=== PATIENT | female | born 1970 | race Caucasian/White ===

== ENCOUNTER 2017-04-25 09:42 | Emergency (ER) | payer SELFPAY ==
[2017-04-25 09:47] VITALS: BP 124/76; BMI 25.9
[2017-04-25] MEDS ORDERED: TORADOL 60 MG VIAL IM ONE (11:46)
[2017-04-25] MEDS ORDERED: TORADOL 60 MG VIAL ONE (11:47)
--- NOTE | 2017-04-25 12:41 | DR.EXTPAIN ---
HPI - Time seen Time seen: 10:00 - PCP Primary Care Physician: NFD - Complaint/Symptoms Chief Complaint Doctor Comments: Patient fell while at home two days ago while putting on clothing. She presents today with complain of increased pain in left shoulder. Prior x ray was negative. Chief Complaint:: PT. FELL AT HOME 2 DAYS AGO. PT. C/O LEFT SHOULDER BLADE PAIN. PT. WENT TO [facility] WHEN IT HAPPENED AND THEY TOLD HER IT WAS BRUISED AND PLACED HER IN AN ARM SLING. PT. HAS LIMITED RANGE OF MOTION TO LEFT ARM AND SEVERE PAIN. 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 Past Surgical History: Yes Surgical History: Hysterectomy, Other Past Surgical History Comment: FINGER AND RIGHT LEG - Family History History of Family Medical Conditions: No - Social History Does patient currently use any type of tobacco product: No Have you used tobacco products in the last 12 months: No Type of Tobacco Use: None Does any household member use tobacco: No Alcohol Use: None Do you use any recreational Drugs:: No Lives With: Family Lives Where: Home - infectious screening In the last 2 months have you had wt loss of >10#?: NO Have you had fever, night sweats or hemotysis?: No Have you traveled outside the country in the last 6 months?: No Isolation: Standard ROS - Review of Systems Eyes: No Symptoms Reported ENTM: No Symptoms Reported Respiratoy: No Symptoms Reported Cardiovascular: No Symptoms Reported Gastrointestinal/Abdominal: No Symptoms Reported Genitourinary: No Symptoms Reported Neurological: No Symptoms Reported Musculoskeletal: No Symptoms Reported Integumentary: No Symptoms Reported Hematologic/Lymphatic: No Symptoms Reported Endocrine: No Symptoms Reported Psychiatric: No Symptoms Reported All Other Systems: Reviewed and Negative PE - Vital Signs Vitals: Temperature 98.2 F Pulse Rate 79 Respiratory Rate 20 Blood Pressure 124/76 O2 Sat by Pulse Oximetry 95 - General Limitations: No Limitations General Appearance: Alert, Anxious - Head Head Exam: Normal Inspection, Atraumatic - Eyes Eye exam: Normal Appearance, PERRL, EOMI - ENT ENT Exam: Normal Exam - Neck Neck Exam: Normal Inspection, Full ROM - Chest Chest Inspection: Normal Inspection - Respiratory Respiratory Exam: Normal Lung Sounds Bilat Respiratory Exam: Bilateral Clear to Auscultation - Cardiovascular Cardiovascular Exam: Regular Rate, Normal Rhythm - Abdominal Exam Abdominal Exam: Normal Inspection Abdominal Tenderness: Epigastrium - Extremities Extremities Exam: Normal Inspection - Upper Extremities Shoulder Exam: Tenderness over AC Joint Arm Exam: Normal Inspection Elbow Exam: Normal Inspection Forearm Exam: Normal Inspection Hand Exam: Normal Inspection Neuromotor Exam: Normal Exam Neurosensory Exam: Normal Exam Upper Ext. Vascular Exam: Capillary Refill - Lower Extremities Hip/Pelvis Exam: Normal Inspection Upper Leg Exam: Normal Inspection Knee Exam: Normal Inspection Lower Leg Exam: Normal Inspection Ankle Exam: Normal Inspection Foot/Toe Exam: Normal Inspection Neurovascular/Tendon Exam: Normal Capillary Refill Gait Exam: Observed and Normal - Back Back Exam: Normal Inspection - Neurological Neurological Exam: Alert, Oriented X3, CN II-XII Intact - Psychiatric Psychiatric Exam: Normal Affect - Skin Skin Exam: Warm, Dry, Intact Course - Education/Counseling Educated On: Treatment, Diagnosis, Needs for Follow Up ROR - XRAY XRAY Interpreted by: Radiologist (Acute inferior scapular fracture, incompletely visualized) - Diagnosis Discharge Problem: Closed left scapular fracture Qualifiers: Encounter type: initial encounter Scapula location: unspecified part of scapula Qualified Code(s): S42.102A - Fracture of unspecified part of scapula, left shoulder, initial encounter for closed fracture - Discharge Plan Condition: Stable - Follow ups/Referrals Follow ups/Referrals: NFD,None [Primary Care Provider] - 3 days - Instructions
--- NOTE | 2017-04-25 13:12 | CT ---
CT left shoulder without contrast Indication: Fall with shoulder pain and limited range of motion Comparison: None Technique: CT images of the left shoulder were obtained without contrast. Automatic exposure control was utilized. Findings: There is an acute, moderately displaced fracture along the inferior aspect of the scapula, incompletely visualized. The glenohumeral and acromioclavicular joints are normally maintained. No ac raffy cortical disruption or malalignment of the shoulder identified. The muscle bulk about the shoulde r is within normal limits. No overt cuff tear, within CT limitations. No acute upper rib fracture observed. There is a chronic nondisplaced fracture of the anterior left 3 rd rib. The upper left lung is grossly clear. Impression: Acute inferior scapular fracture, incompletely visualized. Reported By:
== END 2017-04-25 13:46 | disposition home or self-care (01) ==
LOC: ER 09:57
DX: S42.102A Fracture of unspecified part of scapula, left shoulder, initial encounter for closed fracture (principal); W19.XXXA Unspecified fall, initial encounter; Y92.009 Unspecified place in unspecified non-institutional (private) residence as the place of occurrence of the external cause
CPT/HCPCS: 73200; 96372; 99282; J1885

== ENCOUNTER → 2017-07-29 | Outpatient (CLI) | payer MEDICAID ==
[~2017-07-29] MED LIST: FENTANYL INJ 100 mcg ONE
--- NOTE | 2017-07-29 13:08 | RAD ---
Examination: Chest x-ray. Clinical History: Preop for right foot surgery. Technique: PA and lateral views of the chest were obtained. Comparison: None available. Findings: The cardiac and mediastinal contours are within normal limits. No pneumothorax or pleural effusion is noted. The lungs appear clear. There is a thoracic scoliosis seen convex to the right. No acute osseous abnormality is noted. Impression: 1. No acute disease. Reported By:
[2017-07-29 13:33] LABS: BASOPHILS # (AUTO) 0.1 X10^3/uL (0.0-0.1); EOSINOPHILS % (AUTO) 0.7 % (0.9-2.9); HEMATOCRIT 39.7 % (36.0-47.0); HEMOGLOBIN 13.5 g/dL (12.0-16.0); LYMPHOCYTES # (AUTO) 1.5 X10^3/uL (1.3-2.9); LYMPHOCYTES % (AUTO) 28.6 % (21.0-51.0); MEAN CORPUSCULAR HEMOGLOBIN 28.3 pg (27.0-34.0); MEAN CORPUSCULAR VOLUME 83.3 fL (80.0-100.0); MEAN PLATELET VOLUME 7.6 fL (7.4-11.0); MONOCYTES # (AUTO) 0.3 x10^3/uL (0.3-0.8); MONOCYTES % (AUTO) 6.3 % (0.0-13.0); NEUTROPHILS # (AUTO) 3.4 x10^3/uL (2.2-4.8); NEUTROPHILS % (AUTO) 63.4 % (42.0-75.0); PLATELET COUNT 325 X10^3/uL (150.0-450.0); RED BLOOD COUNT 4.76 X10^6/uL (3.5-5.4); RED CELL DISTRIBUTION WIDTH 14.2 % (11.6-16.5); WHITE BLOOD COUNT 5.3 X10^3/uL (3.6-10.0)
[2017-07-29 13:35] LABS: BILIRUBIN,URINE 1+ (NEGATIVE); BLOOD/HEMOGLOBIN,URINE 1+ (NEGATIVE); GLUCOSE, URINE NEGATIVE (NEGATIVE); KETONES,URINE 1+ (NEGATIVE); LEUKOCYTE ESTERASE ,URINE 2+ (NEGATIVE); NITRITES,URINE NEGATIVE (NEGATIVE); PROTEIN,URINE 1+ (NEGATIVE); UROBILINOGEN,URINE 1+ (NORMAL)
[2017-07-29 13:45] LABS: APPEARANCE,URINE SLIGHTLY HAZY (CLEAR); COLOR,URINE DARK YELLOW (YELLOW)
[2017-07-29 13:46] LABS: AMORPHOUS SEDIMENT,UR TRACE /HPF (NEGATIVE); BACTERIA,URINE 3+ /HPF (NEGATIVE); MUCUS,URINE FEW /HPF (NEGATIVE); RBC,URINE 0-2 /HPF (NONE SEEN); SQUAMOUS EPITHELIAL CELL,UR FEW /HPF (NEGATIVE)
[2017-07-29 13:59] LABS: ALANINE AMINOTRANSFERASE 26 Units/L (12-78); ALBUMIN 4.2 g/dL (3.4-5.0); ALKALINE PHOSPHATASE 69 Units/L (46-116); ASPARTATE AMINO TRANSFERASE 21 Units/L (15-37); BLOOD UREA NITROGEN 15 mg/dL (7-18); CALCIUM 9.1 mg/dL (8.5-10.1); CARBON DIOXIDE 28.1 mmol/L (21-32); CHLORIDE 102 mmol/L (98-107); CREATININE 0.95 mg/dL (0.55-1.02); SODIUM 139 mmol/L (136-145); TOTAL PROTEIN 7.9 g/dL (6.4-8.2); eGFR BLACK RACES > 60 (>60); eGFR NON BLACK RACES > 60 (>60)
[2017-07-29 14:10] LABS: ERYTHROCYTE SEDIMENTATION RATE 18 MM/HOUR (0-20)
== END ==
LOC: LAB 12:36
PROVIDERS: ATTEND Orthopaedic Surgery
DX: Z01.818 Encounter for other preprocedural examination (principal); Z01.810 Encounter for preprocedural cardiovascular examination; Z01.811 Encounter for preprocedural respiratory examination; Z79.899 Other long term (current) drug therapy; Z11.8 Encounter for screening for other infectious and parasitic diseases; M20.11 Hallux valgus (acquired), right foot; R70.0 Elevated erythrocyte sedimentation rate; R79.82 Elevated C-reactive protein (CRP)
CPT/HCPCS: 36415; 71046; 80053; 81001; 85025; 85652; 86140; 87086; 87640; 87641; 93005; 93010; J3010

== ENCOUNTER 2017-07-31 07:55 | Day surgery (SDC) | payer MEDICAID ==
[2017-07-31] MEDS ORDERED: ANCEF 1 GM IV PREMIX* 1 GM/50 ML BAG IV ONE ×2 (08:30→11:04)
[2017-07-31] MEDS ORDERED: D5 LR 1000 ML 1,000 ML IV ONE (08:30)
[2017-07-31] MEDS ORDERED: DILAUDID INJ ONE ×2 (11:29→12:23)
[2017-07-31] MEDS ORDERED: NS IRRIGATION 1000 ML 1,000 ML with BACITRACIN VIAL 50,000 UNIT IR ONE ×2 (11:30)
[2017-07-31] MEDS ORDERED: ZOFRAN INJ 4 MG VIAL IVP PRN (12:30)
[2017-07-31] MEDS ORDERED: BENADRYL INJ 50 MG VIAL IVP PRN (12:30)
[2017-07-31] MEDS ORDERED: REGLAN INJ 10 MG VIAL IVP PRN (12:30)
[2017-07-31] MEDS ORDERED: PHENERGAN INJ 25 MG IVP PRN (12:30)
[2017-07-31] MEDS: DILAUDID INJ IVP PRN ×3 (12:40→12:50)
[2017-07-31] MEDS ORDERED: SUPRANE IN ONE (13:53)
[2017-07-31] MEDS ORDERED: PERCOCET TAB 5/325 MG ONE (13:55)
[2017-07-31] MEDS ORDERED: ZOFRAN INJ 4 MG VIAL ONE (13:56)
[2017-07-31] MEDS ORDERED: XYLOCAINE 2 % (PLAIN) ONE (13:56)
[2017-07-31] MEDS ORDERED: VERSED ONE (13:56)
[2017-07-31] MEDS ORDERED: DIPRIVAN VIAL ONE (13:56)
[2017-07-31] MEDS ORDERED: PERCOCET TAB 5/325 MG PO PRN (13:57)
[2017-07-31 14:17] VITALS: BP 130/60
--- NOTE | 2017-08-05 15:43 | OR.GENERIC ---
Post-Op Note Generic - Post-Op Note Operative Report: preoperative diagnosis-RIGHT foot hallux valgus deformity Postoperative diagnosis RIGHT foot hallux valgus deformity. Procedure-#1medial exostectomy #2. Modified NIETO's lateral release #3. LAPIDUS fusion of 1st TMT Date of surgery-07/31/2017 Implant used- T plate, 2.5 mm nonlocking, synthes Drains-none Specimens-none Complications-none Indication-patient 46-year-old female, presents to the office with painful swelling on the RIGHT great toe. Patient is not a known case of gout. Patient has been noticing increasing pain as well as deformity of the RIGHT great toe. Patient has tried conservative management in the form of spacers and wide spaced shoes. She failed conservative management and wanted surgical intervention. The disk and benefits involved was discussed with her. Physical examination showed an hypermobile 1st ray with severe hallux valgus as well as inter metatarsal angle. it was decided that patient would benefit from a LAPIDUS fusion. The risks and benefits were discussed with her. Complications including but not limited to infection, Jason Vergara CHELSEA, nonunion, malunion, recurrence of deformity, inability to correct deformity, need for further procedure, persistent pain, neurovascular damage, numbness in the foot and stiffness in the foot were discussed with her. patient has significant past medical history for chronic narcotic usage. I discussed with her in detail the issues with that and especially with containing and controlling her pain after the surgery. She understood and verbalized to same. Patient consented for the procedure. Preoperative-patient was seen in the preoperative holding area. The correct limb was marked. This was confirmed with the nurse as well as the laminator. Patient was met by the laminator in the preoperative holding area. Patient got appropriate antibiotic. Consent was again elicited. Procedure-patient was brought to the operating room. Patient was placed supine on the operating table. General anesthesia was induced. Successful endotracheal intubation was completed. RIGHT limb was prepped and draped. It was kept on a style triangle. C-arm was brought in from the opposite side. A calf tourniquet was inflated after exsanguination. The planned surgical incisions were marked. A medial incision was placed over the 1st metatarsal extending into the 1st MTP joint. Dissection was carried down through the subcutaneous tissue to expose the capsule. Capsulotomy was completed. Capsule was elevated both proximally and distally. HOMANS were placed medially and inferiorly. Using an oscillating saw exostectomy was completed starting distally from the end of the articular surface to the medial border of the shaft. Subchondral cysts were noted in the metatarsal head. The joint did not show any signs of arthritis. A 2nd incision about 3-4 cm was made in the 1st webspace. dissection was carried down through subcutaneous tissue to expose the abductor. Tenotomy of the adductor was done from the 1st metatarsal. The sesamoid was dissected off the capsule. Sesamoids did not show any signs of arthritis. With this the rotational deformity was corrected. A 3rd incision was made over the 1st TMT dorsally. Dissection taken down through the subcutaneous tissue and the neurovascular bundle identified and protected. Extensor pollicis longus and brevis were identified and protected. Subperiosteal dissection was completed after capsulotomy of the TMT. HOHMANN retractors were placed both medially as well as inferiorly protecting the important structures. Using an oscillating saw the articular surface was osteotomized. It was made sure that very minimal amount of bone was resected. The intermetatarsal angle was corrected and held in position with a pointed reduction clamp. This was checked with the C-arm. The head of the 1st metatarsal was made sure that it was in line with the 2nd metatarsal. A T hole plate was chosen and was provisionally fixed with K wires at the desired location. Again C-arm images were obtained to confirm well corrected intermetatarsal angle.the plate was fixed both proximally and distally with screws. It was made sure that there was no shortening of the 1st metatarsal. Bone graft was placed in the 1st TMT. Thorough irrigation was done. Medial imbrication and capsular tightening was completed. The excess capsule was excised. Again images were checked using the C-arm to confirm there was no overcorrection. Thorough irrigation was done and the wound were closed in layers. Tourniquet was deflated at 55 minutes. Sterile dressing was applied. A boot was applied. Patient was woken up from the general anesthesia. Patient was extubated successfully. Patient was shifted to the PACU in stable condition. Patient pain is decently controlled. Discharge instructions-keep the dressing clean and dry. Nonweightbearing to further advice. Limb elevation. Cold application without getting the dressing dry. Take medications as prescribed. Use of walker/crutches. Follow up as advised. Call the office/go to the emergency room in case of severe pain or any other concerns.
== END 2017-07-31 14:17 | disposition home or self-care (01) | DRG 502 ==
LOC: SURG1 07:55
PROVIDERS: ATTEND Orthopaedic Surgery
PROC: 0SNM0ZZ Release Right Metatarsal-Phalangeal Joint, Open Approach (ICD-10-PCS; 2017-07-31)
PROC: 0SGK04Z Fusion of Right Tarsometatarsal Joint with Internal Fixation Device, Open Approach (ICD-10-PCS; 2017-07-31)
PROC: 0QBN0ZZ Excision of Right Metatarsal, Open Approach (ICD-10-PCS; principal; 2017-07-31 10:00)
DX: M20.11 Hallux valgus (acquired), right foot (principal)
CPT/HCPCS: A4222; J0690; J1170; J2001; J2250; J2405; J3490; J7120